=== PATIENT | female | born 1985 | race American Indian/Alaskan Native ===

== ENCOUNTER 2019-04-23 08:47 | Emergency (ER) | payer OTHER, BC, MEDICAID ==
[2019-04-23 09:25] VITALS: BP 159/91
[2019-04-23] MEDS ORDERED: ONDANSETRON 4 MG ODT TAB PO ONE (13:11)
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
[2019-04-23] MEDS ORDERED: traMADol 50 MG TAB PO ONE (13:32)
== END 2019-04-23 14:58 | disposition left against medical advice (07) ==
LOC: ED 08:47
DX: T14.8XXA Other injury of unspecified body region, initial encounter (principal); M54.2 Cervicalgia; M25.561 Pain in right knee; M79.671 Pain in right foot; F17.200 Nicotine dependence, unspecified, uncomplicated; V49.59XA Passenger injured in collision with other motor vehicles in traffic accident, initial encounter; Y93.89 Activity, other specified; Y92.410 Unspecified street and highway as the place of occurrence of the external cause; Y99.8 Other external cause status